=== PATIENT | female | born 1975 | race African-American/Black ===

== ENCOUNTER 2017-08-30 13:33 | Emergency (ER) | payer OTHER ==
[2017-08-30 14:58] LABS: URINE HCG POC HCG NEGATIVE (Negative)
== END 2017-08-30 17:05 | disposition home or self-care (01) ==
LOC: ER 17:05
DX: M25.562 Pain in left knee (principal); M79.662 Pain in left lower leg; R22.42 Localized swelling, mass and lump, left lower limb; Z88.2 Allergy status to sulfonamides; Z98.51 Tubal ligation status
CPT/HCPCS: 81025; 93971; 99284

== ENCOUNTER 2018-04-23 16:16 | Emergency (ER) | payer OTHER ==
[~2018-04-23] VITALS: Ht 172.7 cm; Wt 88.5 kg
[~2018-04-23 16:16] MED LIST: NAPR-514 PO
[2018-04-23 17:15] VITALS: BP 140/88
[2018-04-23] MEDS ORDERED: GUAI118L20 PO (18:17)
[2018-04-23] MEDS ORDERED: AZIT250T6 PO (18:17)
[2018-04-23] MEDS ORDERED: ALBU2.5V8 INH (18:17)
[2018-04-23 18:18] LABS: INFLUENZA A PATIENT NEGATIVE (NEGATIVE); INFLUENZA B PATIENT NEGATIVE (NEGATIVE)
--- NOTE | 2018-04-23 18:18 | PHYS DOC ---
Past Medical History Past Medical History: GERD [facility] Past Surgical History: Tubal ligation [facility] Alcohol Use: None Drug Use: None ([facility]) Adult General Chief Complaint Chief Complaint: FLU SYMPTOM HPI HPI Patient is a 43 year old female who presents with cough 1 month that makes her vomit. Patient states he she just finished a prednisone Dosepak and Tessalon Perles she got from an urgent care. Patient rates her pain a 0 tonight at this time. Vital signs are within normal limits. 99% on room air. Afebrile. ([facility]) Review of Systems Review of Systems Constitutional: Denies fever or chills [] Eyes: Denies change in visual acuity, redness, or eye pain [] HENT: Denies nasal congestion or sore throat [] Respiratory: cough or denies shortness of breath [] Cardiovascular: Chest tightness GI: Denies abdominal pain, nausea, vomiting, bloody stools or diarrhea [] : Denies dysuria or hematuria [] Musculoskeletal: Denies back pain or joint pain [] Integument: Denies rash or skin lesions [] Neurologic: Denies headache, focal weakness or sensory changes [] All other systems were reviewed and found to be within normal limits, except as documented in this note. ([facility]) Allergies Allergies Allergies Coded Allergies Type Severity Reaction Last Updated Verified Sulfa (Sulfonamide Antibiotics) Allergy Severe Swelling 08/30/17 Yes (RAMON MATTA MD) Physical Exam Physical Exam Constitutional: Well developed, well nourished, no acute distress, non-toxic appearance. [] HENT: Normocephalic, atraumatic, bilateral external ears normal, oropharynx moist, no oral exudates, nose normal. Throat reddened but no exudates or swelling. [] Eyes: PERRLA, EOMI, conjunctiva normal, no discharge. [] Neck: Normal range of motion, no tenderness, supple, no stridor. [] Cardiovascular:Heart rate regular rhythm, no murmur [] Lungs & Thorax: Bilateral breath sounds clear to auscultation [] Abdomen: Bowel sounds normal, soft, no tenderness, no masses, no pulsatile masses. [] Skin: Warm, dry, no erythema, no rash. [] Back: No tenderness, no CVA tenderness. [] Extremities: No tenderness, no cyanosis, no clubbing, ROM intact, no edema. [] Neurologic: Alert and oriented X 3, normal motor function, normal sensory function, no focal deficits noted. [] Psychologic: Affect normal, judgement normal, mood normal. [] (KHALIF STEINBERG APRN) Current Patient Data Vital Signs Vital Signs Date Time Temp Pulse Resp B/P (MAP) Pulse Ox O2 Delivery O2 Flow Rate FiO2 04/23/18 17:15 99.3 92 20 140/88 (105) 99 Room Air 99.3 (RAMON MATTA MD) Lab Values Laboratory Tests Test 04/23/18 17:40 Influenza Type A Antigen Negative (NEGATIVE) Influenza Type B Antigen Negative (NEGATIVE) (RAMON MATTA MD) EKG EKG [] (KHALIF STEINBERG APRN) Radiology/Procedures Radiology/Procedures [] (KHALIF STEINBERG APRN) Course & Med Decision Making Course & Med Decision Making Patient is a 43 year old female who presents with cough 1 month that makes her vomit. Patient states he she just finished a prednisone Dosepak and Tessalon Perles she got from an urgent care. Patient rates her pain a 0/10 at this time. Vital signs are within normal limits. 99% on room air. Afebrile. Abdomen is soft and nontender. Lungs are clear to auscultation all lobes. Heart regular without murmur. There is reddened but there is no exudates or swelling. Bilateral tympanic membranes are pearly white. Patient given a Z-Anuel and Cheratussin. Patient denies chest pain was but states at times she has chest tightness and denies shortness of air. Patient to follow up with primary care provider seems possible. (KHALIF STEINBERG APRN) Course & Med Decision Making Staff Physician Addendum: I was working in the ER during the course of this patient's visit. I was available for consultation as needed, but I was not directly involved in the care of this patient. (RAMON MATTA MD) Dragon Disclaimer Dragon Disclaimer This electronic medical record was generated, in whole or in part, using a voice recognition dictation system. (KHALIF STEINBERG APRN) Departure Departure Impression: Primary Impression: Cough Disposition: 01 HOME, SELF-CARE Condition: STABLE Referrals: IVAN CHOU MD (PCP) Patient Instructions: Cough, Adult Additional Instructions: Follow up with primary care provider as soon as possible. Take medication as prescribed. Scripts Guaifenesin/Codeine Phosphate (CHERATUSSIN AC SYRUP) 118 Ml Liquid 5 ML PO PRN Q6HRS, #120 ML Prov: KHALIF STEINBERG APRN 04/23/18 Albuterol Sulfate (PROAIR HFA INHALER) 8.5 Gm Hfa.aer.ad 1 PUFF INH PRN Q6HRS PRN for SHORTNESS OF BREATH, #1 INHALER 0 Refills Prov: KHALIF STEINBERG APRN 04/23/18 Azithromycin (AZITHROMYCIN TABLET) 250 Mg Tablet 1 PKG PO UD, #6 TAB Prov: KHALIF STEINBERG APRN 04/23/18 KHALIF STEINBERG APRN Apr 23, 2018 18:18 RAMON MATTA MD Apr 24, 2018 08:09
== END 2018-04-23 18:28 | disposition home or self-care (01) ==
LOC: ER 16:16
DX: R05 Cough (principal); R11.10 Vomiting, unspecified; K21.9 Gastro-esophageal reflux disease without esophagitis; Z98.51 Tubal ligation status; Z88.2 Allergy status to sulfonamides
CPT/HCPCS: 87804; 99283

== ENCOUNTER 2018-05-21 13:41 | Emergency (ER) | payer OTHER ==
[~2018-05-21] VITALS: Ht 172.7 cm; Wt 88.5 kg
[~2018-05-21 13:41] MED LIST changes: +ALBU2.5V8 INH; +AZIT250T6 PO; +GUAI118L20 PO
--- NOTE | 2018-05-21 15:09 | RAD ---
CHEST PA LATERAL Clinical indications: COUGH X 2 MONTHS, MID BACK PAIN COMPARISON: None available. Findings: No acute lung infiltrate or pleural effusion or pulmonary edema or lung mass or pneumothorax is seen. The heart size, pulmonary vasculature, mediastinum and both kyra are unremarkable. The osseous structures appear intact. Impression: No acute radiographic abnormality is seen. Electronically signed by: Joni Farooq MD (05/21/2018 3:06 PM) [facility]
--- NOTE | 2018-05-21 16:04 | PHYS DOC ---
Past Medical History Past Medical History: GERD, Hypertension Past Surgical History: Tubal ligation Alcohol Use: None Drug Use: None Adult General Chief Complaint Chief Complaint: COUGH HPI HPI Patient is a 43 year old female with history of hypertension, acid reflex, who presents to the ED today complaining of a productive cough for the last 2 months. Patient states she has been seen by the PCP, urgent care, GI doctor, they've done multiple x-rays, they even did an upper GI scope which is negative. Patient states she has continued to have the cough. She states she even has codeine for cough at home which is not helping. She states her back hurts when she coughs. Denies any chest pain, denies any shortness of breath. Review of Systems Review of Systems Constitutional: Denies fever or chills [] Eyes: Denies change in visual acuity, redness, or eye pain [] HENT: Denies nasal congestion or sore throat [] Respiratory: Reports coughing, denies shortness of breath [] Cardiovascular: No additional information not addressed in HPI [] GI: Denies abdominal pain, nausea, vomiting, bloody stools or diarrhea [] : Denies dysuria or hematuria [] Musculoskeletal: Denies back pain or joint pain [] Integument: Denies rash or skin lesions [] Neurologic: Denies headache, focal weakness or sensory changes [] All other systems were reviewed and found to be within normal limits, except as documented in this note. Allergies Allergies Allergies Coded Allergies Type Severity Reaction Last Updated Verified Sulfa (Sulfonamide Antibiotics) Allergy Severe Swelling 08/30/17 Yes doxycycline Allergy Mild Rash 05/21/18 Yes Physical Exam Physical Exam Constitutional: Well developed, well nourished, no acute distress, non-toxic appearance. [] HENT: Normocephalic, atraumatic, bilateral external ears normal, oropharynx moist, no oral exudates, nose normal. [] Eyes: PERRLA, EOMI, conjunctiva normal, no discharge. [] Neck: Normal range of motion, no tenderness, supple, no stridor. [] Cardiovascular:Heart rate regular rhythm, no murmur [] Lungs & Thorax: Bilateral breath sounds clear to auscultation [] Abdomen: Bowel sounds normal, soft, no tenderness, no masses, no pulsatile masses. [] Skin: Warm, dry, no erythema, no rash. [] Back: No tenderness, no CVA tenderness. [] Extremities: No tenderness, no cyanosis, no clubbing, ROM intact, no edema. [] Neurologic: Alert and oriented X 3, normal motor function, normal sensory function, no focal deficits noted. [] Psychologic: Affect normal, judgement normal, mood normal. [] Current Patient Data Vital Signs Vital Signs Date Time Temp Pulse Resp B/P (MAP) Pulse Ox O2 Delivery O2 Flow Rate FiO2 05/21/18 13:54 99.9 108 22 127/89 (102) 98 Room Air 99.9 EKG EKG [] Radiology/Procedures Radiology/Procedures []PROCEDURE: CHEST PA & LATERAL CHEST PA LATERAL Clinical indications: COUGH X 2 MONTHS, MID BACK PAIN COMPARISON: None available. Findings: No acute lung infiltrate or pleural effusion or pulmonary edema or lung mass or pneumothorax is seen. The heart size, pulmonary vasculature, mediastinum and both kyra are unremarkable. The osseous structures appear intact. Impression: No acute radiographic abnormality is seen. Electronically signed by: Tony Farooq MD (05/21/2018 3:06 PM) [facility] DICTATED and SIGNED BY: TONY FAROOQ MD DATE: 05/21/18 1506 Course & Med Decision Making Course & Med Decision Making Pertinent Labs and Imaging studies reviewed. (See chart for details) This is a 43-year-old female patient presenting to the ED today complaining of a cough for the last 2 months. Patient has been seen in the ED before for this cough, has been seen by the PCP, has been seen by GI, they cannot find any cause for her cough. We did a chest x-ray in the ED today which is negative. Her temperature is 99.9, informed patient we should consider doing influenza test, she states she cannot do the test because she can't stand it. Informed patient she is still running a slight fever, she states the fevers as result of her driving with the windows open and wearing warm clothing. She states she does not feel febrile. She was discharged to home and instructed to follow-up with her own PCP. Requested patient to consider being tested for whooping cough by the PCP considering she continues to have this cough 2 months out. She states she'll follow-up. Dragon Disclaimer Dragon Disclaimer This electronic medical record was generated, in whole or in part, using a voice recognition dictation system. Departure Departure Impression: Primary Impression: Cough Disposition: 01 HOME, SELF-CARE Condition: STABLE Referrals: IVAN CHOU MD (PCP) follow up next week Patient Instructions: Cough, Adult, [id number] Additional Instructions: You were evaluated in the emergency room for cough that has been going on for 2 months. Please consider following up with the primary care doctor for further workup of this cough. You are running a slight fever. Take Tylenol or Motrin as needed for fever or pain. Scripts Benzonatate (TESSALON PERLE) 100 Mg Capsule 1 CAP PO TID, #30 CAP Prov: ALYCIA WORLEY APRN 05/21/18 Albuterol Sulfate (VENTOLIN HFA INHALER) 18 Gm Hfa.aer.ad 2 PUFF INH Q4HRS for FOR ASTHMA, #1 INHALER 0 Refills Prov: ALYCIA WORLEY APRN 05/21/18 ALYCIA WORLEY APRN May 21, 2018 16:04
[2018-05-21 16:10] VITALS: BP 132/85
[2018-05-21] MEDS ORDERED: BENZ100C PO (16:11)
[2018-05-21] MEDS ORDERED: VENTOLIN HFA18 GM INH (16:11)
== END 2018-05-21 16:21 | disposition home or self-care (01) ==
LOC: ER 13:41
DX: R05 Cough (principal); M54.6 Pain in thoracic spine; K21.9 Gastro-esophageal reflux disease without esophagitis; I10 Essential (primary) hypertension; Z98.51 Tubal ligation status; Z88.2 Allergy status to sulfonamides; Z88.1 Allergy status to other antibiotic agents
CPT/HCPCS: 71046; 99284-25